=== PATIENT | male | born 1970 | race African-American/Black ===

== ENCOUNTER 2019-01-04 12:19 | Emergency (ER) | payer OTHER, MEDICAID ==
[~2019-01-04] VITALS: Ht 165.1 cm; Wt 98.0 kg
[2019-01-04 12:28] VITALS: BP 145/86
[2019-01-04] MEDS ORDERED: INSULIN REGULAR, HUMAN 100 UNIT/ML 10 ML VIAL ONE (12:59)
[2019-01-04] MEDS ORDERED: INSULIN REGULAR, HUMAN 100 UNIT/ML 10 ML VIAL SQ ONE ×2 (13:00→14:00)
[2019-01-04] MEDS ORDERED: ACETAMINOPHEN 325 MG TABLET ONE (23:31)
== END 2019-01-04 14:14 ==
LOC: ER 12:27
DX: E11.65 Type 2 diabetes mellitus with hyperglycemia (principal); G40.909 Epilepsy, unspecified, not intractable, without status epilepticus; I10 Essential (primary) hypertension; Z88.0 Allergy status to penicillin
CPT/HCPCS: 82962 ×2; 96372 ×2; 99283; J1815